=== PATIENT | female | born 2000 | race Asian ===

== ENCOUNTER 2025-01-10 14:54 | Outpatient (CLI) | payer OTHER, SELFPAY ==
[2025-01-10 22:26] LABS: Chlamydia DNA Amplified* NOT DETECTED (No Detected); GC DNA Amplified* NOT DETECTED (No Detected)
== END 2025-01-10 14:55 | disposition home or self-care (01) ==
PROVIDERS: Visit Provider Physician Assistant
DX: Z11.3 Encounter for screening for infections with a predominantly sexual mode of transmission (principal); N92.6 Irregular menstruation, unspecified
CPT/HCPCS: 84703; 87491; 87591